=== PATIENT | male | born 2000 | race Caucasian/White ===

== ENCOUNTER 2024-09-28 10:18 | Emergency (ER) | payer BC ==
[~2024-09-28] VITALS: Ht 177.8 cm; Wt 81.0 kg
[2024-09-28 10:21] VITALS: BP 148/76; PULSE 110; RESP 16; O2SAT 98
== END 2024-09-28 11:47 | disposition left against medical advice (07) ==
LOC: ER 10:33
DX: R56.9 Unspecified convulsions (principal); Z53.21 Procedure and treatment not carried out due to patient leaving prior to being seen by health care provider